=== PATIENT | female | born 1980 | race Caucasian/White ===

== ENCOUNTER 2021-06-23 20:02 | Emergency (ER) | payer OTHER ==
[2021-06-23] MEDS ORDERED: predniSONE 20 MG TABLET (UD) PO ONE (20:24)
[2021-06-23] MEDS ORDERED: METHOCARBAMOL 500 MG TABLET PO ONE (20:31)
[2021-06-23] MEDS ORDERED: predniSONE 20 MG TABLET (UD) ONE (20:35)
[2021-06-23] MEDS ORDERED: METHOCARBAMOL 500 MG TABLET ONE (20:35)
[2021-06-23 20:46] VITALS: BP 119/77; PULSE 88; TEMP 98.5; BMI 22.0
== END 2021-06-23 20:43 | disposition home or self-care (01) ==
LOC: FER 20:02
DX: M62.838 Other muscle spasm (principal)
CPT/HCPCS: 99283-25